=== PATIENT | female | born 1995 | race Caucasian/White ===

== ENCOUNTER 2019-11-26 17:23 | Emergency (ER) | payer SELFPAY ==
[~2019-11-26] VITALS: Ht 165.1 cm; Wt 90.7 kg
--- NOTE | 2019-11-26 17:37 | NUR ---
DR WOODWARD AT BEDSIDE FOR EVAL.
[2019-11-26] MEDS ORDERED: NEOMY/BACITRA/POLYMYXIN B OINT UD PACKET TP ONE ×2 (17:58→18:00)
--- NOTE | 2019-11-26 18:02 | NUR ---
Patient discharged to home in stable condition. Written and verbal after care instructions given. Patient verbalizes understanding of instructions. Stressed follow up or return to ER for worsening s/s.
== END 2019-11-26 18:03 | disposition home or self-care (01) ==
LOC: ER 17:23
DX: S61.230A Puncture wound without foreign body of right index finger without damage to nail, initial encounter (principal); W53.21XA Bitten by squirrel, initial encounter; Y92.89 Other specified places as the place of occurrence of the external cause
CPT/HCPCS: A4663

== ENCOUNTER 2020-09-05 12:51 | Emergency (ER) | payer MEDICAID, OTHER ==
[~2020-09-05] VITALS: Ht 165.1 cm; Wt 93.0 kg
[2020-09-05] MEDS ORDERED: diphenhydrAMINE 50 MG/1 ML VIAL IV ONE (13:45)
[2020-09-05] MEDS ORDERED: METOCLOPRAMIDE HCL 10 MG/2 ML VIAL IV ONE (13:45)
[2020-09-05] MEDS ORDERED: MORPHINE SULFATE 2 MG/1 ML DISP.SYRIN IV ONE (13:45)
[2020-09-05] MEDS ORDERED: IV NS 1000 ML 1,000 ML IV ONE (13:45)
[2020-09-05] MEDS ORDERED: MORPHINE SULFATE 2 MG/1 ML DISP.SYRIN ONE (13:56)
[2020-09-05] MEDS ORDERED: diphenhydrAMINE 50 MG/1 ML VIAL ONE (13:56)
[2020-09-05] MEDS ORDERED: METOCLOPRAMIDE HCL 10 MG/2 ML VIAL ONE (13:56)
[2020-09-05 14:15] LABS: CREATININE 0.8 mg/dL (0.6-1.3); POTASSIUM 4.1 mmol/L (3.5-5.1)
[2020-09-05 14:27] LABS: BILIRUBIN,DIRECT 0.1 mg/dL (0.0-0.2); BILIRUBIN,TOTAL 0.7 mg/dL (0.2-1.0)
[2020-09-05 14:40] LABS: HEMATOCRIT 38.9 % (31.2-41.9); MEAN CORPUSCULAR HEMOGLOBIN 29.1 uug (24.7-32.8); MEAN CORPUSCULAR VOLUME 87.1 fL (75.5-95.3); PLATELET COUNT (AUTO) 203 K/uL (179-408)
[2020-09-05] MEDS ORDERED: IV NORMAL SALINE 250 ML IV ONE (15:02)
[2020-09-05] MEDS ORDERED: SWABABLE VALVE TRANSFER SET EA MC ONE (15:02)
[2020-09-05] MEDS ORDERED: IOHEXOL 350 100 ML INFUS..BTL ONE (15:02)
[2020-09-05] MEDS ORDERED: EPINEPHRINE-PF 1:1000 1 MG/ML AMPUL IM ONE (16:30)
[2020-09-05] MEDS ORDERED: methylPREDNISolone SOD SUCC 125 MG/2 ML VIAL IV ONE (17:15)
[2020-09-05] MEDS ORDERED: methylPREDNISolone SOD SUCC 125 MG/2 ML VIAL ONE (17:39)
[2020-09-05] MEDS ORDERED: EPINEPHRINE 1 MG/1 ML AMP ONE (17:43)
--- NOTE | 2020-09-05 19:00 | NUR ---
Recieved report from MALENA Canela. Pt cc allergic reaction from depo provera shot she recieved at 1030 am today. Pt had sob, nausea and headache 10/15. Pt. currently resting in bed with mother at bedside and denies any sob, nausea or pain. She states she feels better and MD will be discharging pt soon.
[2020-09-05] MEDS ORDERED: FAMO-132 PO (19:19)
[2020-09-05] MEDS ORDERED: PRED50TA PO (19:19)
--- NOTE | 2020-09-05 19:28 | NUR ---
IV removed. Catheter intact and site benign. Pressure and 4x4 gauze applied to site. No bleeding noted.
--- NOTE | 2020-09-05 19:28 | NUR ---
Patient discharged to home in stable condition. Written and verbal after care instructions given. Patient verbalizes understanding of instructions. Stressed follow up or return to ER for worsening s/s. Pt. walks with steady gait and denies headache, sob, nausea.
[2020-09-05 22:34] VITALS: BP 115/77
== END 2020-09-05 19:30 | disposition home or self-care (01) ==
LOC: ER 12:51
DX: R06.02 Shortness of breath (principal); R07.9 Chest pain, unspecified; R94.31 Abnormal electrocardiogram [ECG] [EKG]; Z82.49 Family history of ischemic heart disease and other diseases of the circulatory system
CPT/HCPCS: 36415; 71045; 71275; 80048; 80076; 83880; 84484 ×2; 85025; 85379; 93005; 96365; 96372; 96375; 99285; J0171; J1200; J2270; J2765; J2930; Q9967; 70030-TC; A4663; J7030; J7050